=== PATIENT | male | born 1960 | race African-American/Black ===

== ENCOUNTER 2025-06-21 06:49 | Outpatient (CLI) | payer MEDICARE, SELFPAY ==
--- NOTE | ~2025-06-21 | PE_ITS ---
EXAMINATION: PET_PETPSMAST_PT DATE: 06/21/2025 09:45 INDICATION: Prostate cancer TECHNIQUE: 5.499 mCi of Illucix [id number]) was administered i.v. Low dose computed tomography (CT) images were acquired from the base of the brain to the base of the brain to the proximal thighs for attenuation correction and anatomic localization. Positron emission tomography (PET) images were acquired in the same distribution beginning 75 minutes after injection. Images including fused PET/CT images were reconstructed in axial, coronal, and sagittal planes. Automated exposure control technique was employed. The dose-length product was 1280.34mGy-cm. COMPARISON: None FINDINGS: Head/neck: Typical pattern of symmetric physiologic increased activity in the lacrimal, parotid and submandibular glands as well as along the mucosa of the nasal and oral cavities, pharynx and hypopharynx. No pathologically enlarged cervical lymphadenopathy or suspicious foci of increased uptake in the visualized head or neck. Chest: Lungs are clear with no pulmonary nodules, focal airspace opacities, pulmonary edema or pleural effusion. Heart size is normal. Atherosclerotic coronary artery calcifications. No pericardial effusion. Tunneled right internal jugular central venous catheter with distal tip at the superior cavoatrial junction. Thoracic aorta is normal in caliber. No pathologically enlarged or PSMA avid thoracic lymphadenopathy. Abdomen/pelvis/proximal thighs: Physiologic renal accumulation and excretion of activity in the kidneys, bladder and along portions of ureters. Mild prostatomegaly measuring 4.3 x 3.7 cm. There are couple small foci of increased uptake in the prostate the more intense located anteriorly on the left with maximal SUV of 10.0 and with the second at the right mid to posterior prostate with maximal SUV of 6.2 consistent with primary prostate cancer. Normal degree and slightly heterogenous pattern of increased uptake throughout the liver and spleen without radiologic correlate or dominant PSMA avid lesion. The gallbladder, pancreas and bilateral adrenal glands are normal. Moderate uptake scattered throughout the bowels with typical duodenal and proximal jejunal predominance and without radiologic correlate, also likely physiologic. Small fat-containing umbilical hernia. No other abnormal foci of increased uptake or pathologically enlarged lymphadenopathy in the abdomen, pelvis or proximal thighs. Musculoskeletal: Moderate cervical, thoracic and lumbar spondylosis with bridging or nearly bridging osteophytes at multiple levels consistent with diffuse idiopathic skeletal hyperostosis (DISH). No suspicious lytic, blastic or abnormally PSMA avid bone lesions. IMPRESSION: 1. 2 small foci of increased uptake in the mildly enlarged prostate consistent with primary prostate cancer. No PSMA avid lesions suspicious for metastatic disease. Reviewed, dictated and finalized at location A. IMPRESSION: 1. 2 small foci of increased uptake in the mildly enlarged prostate consistent with primary prostate cancer. No PSMA avid lesions suspicious for metastatic di sease.
== END 2025-06-21 06:50 | disposition home or self-care (01) ==
PROVIDERS: PCP Family Medicine; Visit Provider Urology
DX: C61 Malignant neoplasm of prostate (principal)
CPT/HCPCS: 78815; A9596